=== PATIENT | male | born 1955 | race Caucasian/White ===

== ENCOUNTER 2021-06-02 08:03 | Inpatient (IN) | payer OTHER ==
[2021-06-02] MEDS ORDERED: Acetaminophen 325 MG TAB PO PRN (12:46)
[2021-06-02] MEDS ORDERED: Bisacodyl 5 MG TAB PO PRN (12:46)
[2021-06-02] MEDS ORDERED: Benzonatate 100 MG CAP PO PRN (15:19)
[2021-06-02] MEDS ORDERED: Albuterol Sulfate 2.5 mg/3 ml Neb NEB PRN (15:19)
[2021-06-02] MEDS ORDERED: Ondansetron ODT 4 MG TAB PO PRN (15:20)
[2021-06-02] MEDS ORDERED: Nicotine 21 MG PATCH TD PRN (15:20)
[2021-06-02 15:23] VITALS: BMI 28.5
[2021-06-02] MEDS ORDERED: Electrolyte Replacement Protocol 1 EACH FS SCH (15:30)
[2021-06-02] MEDS: Cefepime 2 GM in Sodium Chloride 0.9% 100 ML IVPB SCH (20:14)
[2021-06-02 20:25] LABS: Pleural Fluid, Protein 4.4 g/dL
[2021-06-02 20:31] LABS: RBC Count-Automated (BF) 9370 /cu.mm; WBC/Nucleated-Auto (BF) 3068 /cu.mm
[2021-06-02 20:43] LABS: Body Fluid Source Thoracentesis Fluid; Tube # EDTA
[2021-06-02 20:44] LABS: BF Color Yellow; Clarity Hazy (Clear)
[2021-06-02 20:48] LABS: BF Segmented Neutrophils 17 %; Cell Count Non Hematic 4 %; Eosinophils 3 %; Lymphocytes 76 %
[2021-06-02] MEDS ORDERED: Rosuvastatin 20 MG TAB PO SCH (21:00)
[2021-06-02] MEDS ORDERED: Calcium Carbonate 500 MG ChewTAB PO PRN (21:58)
[2021-06-03 06:43] LABS: #Eosinphils 0.3 thou/uL (0.0-0.7); #Lymphocytes 1.7 thou/uL (1.20-3.40); #Monocytes 0.9 thou/uL (0.11-0.59); #Neutrophils 6.8 thou/uL (1.40-6.50); %Basophils 0.4 % (0.0-1.0); %Eosinophils 2.9 % (0.0-10.0); %Lymphocytes 17.9 % (21.0-51.0); %Monocytes 8.8 % (0.0-10.0); Hemoglobin 10.2 g/dL (14.0-18.0); Mean Corpuscular HGB CONC 33.2 g/dL (32.0-36.0); Mean Corpuscular Hemoglobin 32.8 pg (27.0-31.0); Mean Corpuscular Volume 98.8 fL (78.0-98.0); Mean Platelet Volume 6.3 fL (7.4-10.4); Platelet Count 356 thou/uL (130-400); RBC Distribution Width 12.3 % (11.5-14.5); White Blood Cell (WBC) Count 9.7 thou/uL (4.8-10.8)
[2021-06-03 06:45] LABS: Hemoglobin A1c 5.3 % (4.0-6.0)
[2021-06-03 07:04] LABS: ALT (SGPT) 71 U/L (8-55); AST (SGOT) 79 U/L (5-34); Albumin 2.5 g/dL (3.4-4.8); Alkaline Phosphatase 57 U/L (40-110); Anion Gap 12 mmol/L (10-20); BUN (Urea Nitrogen) 8 mg/dL (8.4-25.7); Bilirubin, Total 0.4 mg/dL (0.2-1.2); Calc. Creatinine Clearance 140 mL/min (70-130); Carbon Dioxide 24 mmol/L (23-31); Cardiac Risk 4.1 (Less than 4.5); Chloride 98 mmol/L (98-107); Cholesterol 78 mg/dl (< 200 Desired); Globulin 3.5 g/dL (2.4-3.5); Glucose 94 mg/dL (80-115); HDL Cholesterol 19 mg/dL (>60 Neg Risk); LDL Cholesterol, Calculated 50 mg/dL; Magnesium 1.2 mg/dL (1.6-2.6); Sodium 130 mmol/L (136-145); Triglycerides 46 mg/dL (Less than 150)
[2021-06-03 07:06] VITALS: BP 126/75; TEMP 98.5
[2021-06-03] MEDS ORDERED: Magnesium Sulfate 4 GM in Sodium Chloride 0.9% 250 ML 250 ML IVPB SCH (08:15)
[2021-06-03] MEDS: Cefepime 2 GM in Sodium Chloride 0.9% 100 ML IVPB SCH (09:06)
[2021-06-03] MEDS ORDERED: Azithromycin 500 MG in Sodium Chloride 0.9% 250 ML 250 ML IVPB SCH (15:00)
[2021-06-03 17:37] LABS: SARS-CoV-2 PCR by NAA Not Detected (NotDetected)
== END 2021-06-03 12:58 | disposition home or self-care (01) | DRG 194 ==
LOC: T4-B 08:03
PROVIDERS: ADMIT Internal Medicine; ATTEND Internal Medicine
PROC: 0W993ZX Drainage of Right Pleural Cavity, Percutaneous Approach, Diagnostic (ICD-10-PCS; principal; 2021-06-02)
DX: J18.9 Pneumonia, unspecified organism (principal); J90 Pleural effusion, not elsewhere classified; Z20.822 Contact with and (suspected) exposure to COVID-19; E87.1 Hypo-osmolality and hyponatremia; E87.6 Hypokalemia; R07.9 Chest pain, unspecified; D64.9 Anemia, unspecified; I10 Essential (primary) hypertension; E78.5 Hyperlipidemia, unspecified; R91.8 Other nonspecific abnormal finding of lung field; Z87.891 Personal history of nicotine dependence; Z88.5 Allergy status to narcotic agent; Z79.899 Other long term (current) drug therapy; Z83.6 Family history of other diseases of the respiratory system; Z82.49 Family history of ischemic heart disease and other diseases of the circulatory system
CPT/HCPCS: 36415; 71260; 80053; 80061; 82150; 82945; 83036; 83615; 83735; 83986; 84157; 84443; 84478; 85025; 85060; 87070; 87116; 87205; 87206; 88112; 88305; 89051; J0692; J3475; J3490; J7050; U0003; U0005

== ENCOUNTER 2021-06-08 12:11 | Outpatient (CLI) | payer OTHER ==
[2021-06-08 23:10] LABS: SARS-CoV-2 PCR by NAA Not Detected (NotDetected)
== END 2021-06-08 12:12 | disposition home or self-care (01) ==
LOC: LABBT 12:11
PROVIDERS: ATTEND Internal Medicine
DX: Z01.812 Encounter for preprocedural laboratory examination (principal); Z20.822 Contact with and (suspected) exposure to COVID-19
CPT/HCPCS: U0003; U0005

== ENCOUNTER 2021-06-14 11:12 | Inpatient (IN) | payer OTHER ==
[2021-06-14] MEDS ORDERED: Fentanyl 100 MCG/2 ML VIAL ONE (14:02)
[2021-06-14] MEDS ORDERED: PROPOFOL 200 MG/20 ML VIAL ONE (14:16)
[2021-06-14] MEDS ORDERED: Dexamethasone 20 MG/5 ML VIAL ONE (14:16)
[2021-06-14] MEDS ORDERED: Lidocaine 1% PF 5 ML VIAL ONE (14:16)
[2021-06-14] MEDS ORDERED: Rocuronium Bromide 10 MG/ML (10ML VIAL) ONE ×2 (14:16→16:31)
[2021-06-14] MEDS ORDERED: EPINEPHrine 1 MG/10 ML Abboject SYRINGE ONE (14:16)
[2021-06-14] MEDS ORDERED: Phenylephrine 10 MG/ML VIAL ONE (14:16)
[2021-06-14] MEDS ORDERED: Ondansetron PF 4 MG/2 ML Vial ONE (14:16)
[2021-06-14] MEDS ORDERED: Albuterol Sulfate HFA (OR ONLY) ONE (14:20)
[2021-06-14] MEDS ORDERED: Lorazepam 2 MG/ML VIAL ONE (16:30)
[2021-06-14] MEDS ORDERED: Propofol 1,000 MG/100 ML VIAL IV ONE (16:30)
[2021-06-14] MEDS ORDERED: Acetaminophen 325 MG/10.15 ML UDCUP PO PRN (16:45)
[2021-06-14] MEDS ORDERED: Bisacodyl 5 MG TAB PO PRN (16:45)
[2021-06-14] MEDS ORDERED: Insulin Regular 300 UNITS/3 ML VIAL SC PRN (16:45)
[2021-06-14 17:04] LABS: Actual Bicarbonate (HCO3a) 26.3 mEq/L (22-28); Base Excess (BEa) -0.9 mEq/L (-2.0 to +3.0); CO2 Tension 55.3 mmHg (35.0-45.0); Calcium, Ionized (arterial) 1.24 mmol/L (1.12-1.30); O2 Tension (PaO2), arterial 78.9 mmHg (> 80.0); Potassium - ABG Lab 4.35 mmol/L (3.70-5.30)
[2021-06-14 17:05] LABS: ALV-art Gradient 137.175 mmHg (0-20); Puncture Site RRA
[2021-06-14] MEDS ORDERED: Labetalol HCl 100 MG/20 ML VIAL SLOW IVP PRN (17:13)
[2021-06-14] MEDS ORDERED: hydrALAZINE 20 MG/ML VIAL SLOW IVP PRN (17:14)
[2021-06-14 17:29] LABS: Hemoglobin 11.2 g/dL (14.0-18.0); Mean Corpuscular HGB CONC 33.2 g/dL (32.0-36.0); Mean Corpuscular Hemoglobin 32.9 pg (27.0-31.0); Mean Platelet Volume 5.6 fL (7.4-10.4); Platelet Count 645 thou/uL (130-400); RBC Distribution Width 12.6 % (11.5-14.5); Red Blood Cell (RBC) Count 3.41 mill/uL (4.70-6.10); White Blood Cell (WBC) Count 20.4 thou/uL (4.8-10.8)
[2021-06-14 17:48] LABS: Band 14 % (5-11); Lymphocytes 6 % (21-51); MDiff Complete? YES; Monocytes 4 % (0-10); Neutrophil 74 % (42-75); Platelet Morphology Comment Appears Increased; RBC Morphology Normal; Reactive Lymphocytes 2 % (0-10)
[2021-06-14 18:03] LABS: ALT (SGPT) 46 U/L (8-55); AST (SGOT) 23 U/L (5-34); Albumin 3.1 g/dL (3.4-4.8); Alkaline Phosphatase 74 U/L (40-110); Anion Gap 12 mmol/L (10-20); BUN (Urea Nitrogen) 7 mg/dL (8.4-25.7); Bilirubin, Total 0.4 mg/dL (0.2-1.2); Calc. Creatinine Clearance 116 mL/min (70-130); Calcium 9.3 mg/dL (7.8-10.44); Carbon Dioxide 25 mmol/L (23-31); Chloride 104 mmol/L (98-107); Globulin 4.1 g/dL (2.4-3.5); Glucose 189 mg/dL (80-115); Potassium 4.3 mmol/L (3.5-5.1); Protein, Total 7.2 g/dL (5.8-8.1); Sodium 137 mmol/L (136-145)
[2021-06-14] MEDS ORDERED: DISCONTINUE PREVIOUS NARCOTIC PAIN MEDICATIONS AND BENZODIAZEPINES FS SCH (18:15)
[2021-06-14] MEDS ORDERED: Fentanyl CADD 100 ML IV SCH (18:15)
[2021-06-14] MEDS ORDERED: Propofol BOLUS 1,000 MG/100 ML VIAL IV PRN (18:15)
[2021-06-14] MEDS ORDERED: FLU VACC QS2021-22(6MOS UP)/PF 60 MCG/0.5 ML SYRINGE IM ONE (18:15)
[2021-06-14] MEDS ORDERED: Rocuronium Bromide 10 MG/ML (10ML VIAL) IVP SCH (18:15)
[2021-06-14] MEDS ORDERED: Fentanyl BOLUS 250 ML IVPB PRN (18:15)
[2021-06-14] MEDS ORDERED: Morphine 2 MG/ML VIAL SLOW IVP PRN ×2 (18:15→18:18)
[2021-06-14] MEDS ORDERED: Morphine 4 MG/ML VIAL SLOW IVP PRN (18:30)
[2021-06-14] MEDS: Rocuronium Bromide 10 MG/ML (10ML VIAL) IVP PRN ×3 (19:10→23:04)
[2021-06-14] MEDS: Sodium Chloride 0.9% 1,000 ML IV SCH (20:14)
[2021-06-14] MEDS: Famotidine 40 MG/5 ML Oral Suspension PER TUBE SCH (20:14)
[2021-06-14] MEDS ORDERED: Sodium Chloride 0.9% 1,000 ML IV SCH (20:15)
[2021-06-14 21:16] LABS: Hemoglobin 9.3 g/dL (14.0-18.0)
[2021-06-14] MEDS: Propofol 1,000 MG/100 ML VIAL IV PRN (21:26)
[2021-06-15] MEDS: Rocuronium Bromide 10 MG/ML (10ML VIAL) IVP PRN ×4 (01:00→07:04)
[2021-06-15 04:09] LABS: ALT (SGPT) 34 U/L (8-55); AST (SGOT) 15 U/L (5-34); Albumin 2.5 g/dL (3.4-4.8); Alkaline Phosphatase 56 U/L (40-110); Anion Gap 15 mmol/L (10-20); BUN (Urea Nitrogen) 11 mg/dL (8.4-25.7); Bilirubin, Total 0.3 mg/dL (0.2-1.2); Calc. Creatinine Clearance 108 mL/min (70-130); Calcium 8.5 mg/dL (7.8-10.44); Carbon Dioxide 20 mmol/L (23-31); Chloride 106 mmol/L (98-107); Globulin 3.4 g/dL (2.4-3.5); Glucose 143 mg/dL (80-115); Potassium 4.4 mmol/L (3.5-5.1); Protein, Total 5.9 g/dL (5.8-8.1); Sodium 137 mmol/L (136-145)
[2021-06-15 04:27] LABS: Band 6 % (5-11); Hemoglobin 8.9 g/dL (14.0-18.0); Lymphocytes 9 % (21-51); MDiff Complete? YES; Mean Corpuscular HGB CONC 33.3 g/dL (32.0-36.0); Mean Corpuscular Hemoglobin 32.7 pg (27.0-31.0); Mean Corpuscular Volume 98.1 fL (78.0-98.0); Mean Platelet Volume 5.2 fL (7.4-10.4); Monocytes 5 % (0-10); Neutrophil 80 % (42-75); Platelet Count 461 thou/uL (130-400); Platelet Morphology Comment Appears Increased; RBC Distribution Width 12.4 % (11.5-14.5); RBC Morphology Normal; Red Blood Cell (RBC) Count 2.72 mill/uL (4.70-6.10); White Blood Cell (WBC) Count 9.8 thou/uL (4.8-10.8)
[2021-06-15] MEDS: Sodium Chloride 0.9% 1,000 ML IV SCH ×3 (05:10→21:11)
[2021-06-15] MEDS: Propofol 1,000 MG/100 ML VIAL IV PRN (05:10)
[2021-06-15] MEDS: Lorazepam 2 MG/ML VIAL SLOW IVP PRN ×2 (05:10→07:43)
[2021-06-15 07:59] LABS: Actual Bicarbonate (HCO3a) 21.6 mEq/L (22-28); Base Excess (BEa) -3.1 mEq/L (-2.0 to +3.0); CO2 Tension 37.3 mmHg (35.0-45.0); Calcium, Ionized (arterial) 1.16 mmol/L (1.12-1.30); Carboxyhemoglobin (COHb) 0.1 gm% (0.0-3.0); Hemoglobin (Hb) 11.3 g/dL (14.0-18.0); O2 Tension (PaO2), arterial 85.3 mmHg (> 80.0); Potassium - ABG Lab 4.12 mmol/L (3.70-5.30); pH, Arterial 7.38 (7.35-7.45)
[2021-06-15 08:11] LABS: ALV-art Gradient 153.275 mmHg (0-20); Puncture Site RRA
[2021-06-15] MEDS ORDERED: Sodium Chloride 0.9% 1,000 ML IV SCH (08:15)
[2021-06-15] MEDS: Famotidine 40 MG/5 ML Oral Suspension PER TUBE SCH (08:25)
[2021-06-15] MEDS ORDERED: Famotidine/PF 20 mg/2ml Vial SLOW IVP SCH (21:00)
[2021-06-16 04:52] LABS: Band 2 % (5-11); Hemoglobin 6.9 g/dL (14.0-18.0); Lymphocytes 21 % (21-51); MDiff Complete? YES; Mean Corpuscular HGB CONC 33.4 g/dL (32.0-36.0); Mean Corpuscular Hemoglobin 33.2 pg (27.0-31.0); Mean Corpuscular Volume 99.2 fL (78.0-98.0); Mean Platelet Volume 5.3 fL (7.4-10.4); Monocytes 3 % (0-10); Neutrophil 74 % (42-75); Platelet Count 451 thou/uL (130-400); Platelet Morphology Comment Appears Increased; RBC Distribution Width 12.6 % (11.5-14.5); RBC Morphology Normal; Red Blood Cell (RBC) Count 2.06 mill/uL (4.70-6.10); White Blood Cell (WBC) Count 12.4 thou/uL (4.8-10.8)
[2021-06-16 05:08] LABS: ALT (SGPT) 29 U/L (8-55); AST (SGOT) 20 U/L (5-34); Albumin 2.5 g/dL (3.4-4.8); Alkaline Phosphatase 55 U/L (40-110); Anion Gap 9 mmol/L (10-20); BUN (Urea Nitrogen) 9 mg/dL (8.4-25.7); Bilirubin, Total 0.3 mg/dL (0.2-1.2); Calc. Creatinine Clearance 143 mL/min (70-130); Calcium 8.4 mg/dL (7.8-10.44); Carbon Dioxide 24 mmol/L (23-31); Chloride 109 mmol/L (98-107); Globulin 3.2 g/dL (2.4-3.5); Glucose 97 mg/dL (80-115); Potassium 3.6 mmol/L (3.5-5.1); Protein, Total 5.7 g/dL (5.8-8.1); Sodium 138 mmol/L (136-145)
[2021-06-16] MEDS: Sodium Chloride 0.9% 1,000 ML IV SCH (06:20)
[2021-06-16] MEDS: Famotidine 40 MG/5 ML Oral Suspension PER TUBE SCH (07:42)
[2021-06-16] MEDS: Famotidine 20 MG TAB PO SCH ×2 (10:04→21:11)
[2021-06-17 07:05] LABS: Anion Gap 9 mmol/L (10-20); Carbon Dioxide 28 mmol/L (23-31); Chloride 105 mmol/L (98-107); Potassium 3.8 mmol/L (3.5-5.1); Sodium 138 mmol/L (136-145)
[2021-06-17 07:06] LABS: ALT (SGPT) 29 U/L (8-55); AST (SGOT) 22 U/L (5-34); Albumin 2.7 g/dL (3.4-4.8); Alkaline Phosphatase 60 U/L (40-110); BUN (Urea Nitrogen) 8 mg/dL (8.4-25.7); Bilirubin, Total 0.9 mg/dL (0.2-1.2); Calc. Creatinine Clearance 142 mL/min (70-130); Globulin 3.5 g/dL (2.4-3.5); Glucose 95 mg/dL (80-115); Protein, Total 6.2 g/dL (5.8-8.1)
[2021-06-17 07:10] LABS: Mean Corpuscular Hemoglobin 31.8 pg (27.0-31.0); Mean Corpuscular Volume 96.4 fL (78.0-98.0); Mean Platelet Volume 5.4 fL (7.4-10.4); Platelet Count 429 thou/uL (130-400); RBC Distribution Width 13.3 % (11.5-14.5); Red Blood Cell (RBC) Count 3.46 mill/uL (4.70-6.10)
[2021-06-17] MEDS: Famotidine 20 MG TAB PO SCH ×2 (08:35→20:07)
[2021-06-17 09:09] LABS: Band 2 % (5-11); Eosinophils 1 % (0-10); Lymphocytes 23 % (21-51); MDiff Complete? YES; Monocytes 7 % (0-10); Neutrophil 67 % (42-75); Platelet Morphology Comment Appears Increased; RBC Morphology Normal
[2021-06-17 11:38] VITALS: BMI 28.8
[2021-06-18] MEDS: Famotidine 20 MG TAB PO SCH ×2 (08:22→19:10)
[2021-06-19] MEDS: Famotidine 20 MG TAB PO SCH ×2 (08:08→21:14)
[2021-06-20] MEDS: Famotidine 20 MG TAB PO SCH ×2 (08:32→20:57)
[2021-06-20] MEDS ORDERED: Midazolam HCl 2 mg/2 ml Vial ONE ×2 (09:26→10:20)
[2021-06-20] MEDS ORDERED: Fentanyl 250 MCG/5 ML VIAL ONE (09:26)
[2021-06-20] MEDS ORDERED: Fentanyl 100 MCG/2 ML VIAL ONE ×2 (10:20→13:31)
[2021-06-20] MEDS ORDERED: Bupivacaine PF 0.5% 30 ML VIAL ONE (10:41)
[2021-06-20] MEDS ORDERED: Lidocaine 1% w/Epinephrine 1:100K 30 ML VIAL ONE (10:41)
[2021-06-20] MEDS ORDERED: Ondansetron PF 4 MG/2 ML Vial ONE (11:09)
[2021-06-20] MEDS ORDERED: Dexamethasone 20 MG/5 ML VIAL ONE (11:09)
[2021-06-20] MEDS ORDERED: Phenylephrine 10 MG/ML VIAL ONE (11:09)
[2021-06-20] MEDS ORDERED: Rocuronium Bromide 10 MG/ML (10ML VIAL) ONE (11:09)
[2021-06-20] MEDS ORDERED: Glycopyrrolate 0.2 MG/ML 5 ML SYRINGE ONE (11:09)
[2021-06-20] MEDS ORDERED: Lidocaine 1.5% w/Epi 1:200K 30 ML VIAL (Epid Use) ONE (11:09)
[2021-06-20] MEDS ORDERED: Esmolol 100 MG/10 ML VIAL ONE (11:09)
[2021-06-20] MEDS ORDERED: Calcium Chloride 1 GM/10 ML Abboject SYRINGE ONE (11:09)
[2021-06-20] MEDS ORDERED: PROPOFOL 200 MG/20 ML VIAL ONE (11:09)
[2021-06-20] MEDS ORDERED: Labetalol HCl 100 MG/20 ML VIAL ONE (11:09)
[2021-06-20] MEDS ORDERED: Acetaminophen 500 MG TAB PO PRN (11:18)
[2021-06-20] MEDS ORDERED: Naloxone HCl 0.4 mg/ml Vial IV PRN (11:30)
[2021-06-20] MEDS ORDERED: diphenhydrAMINE 50 MG/ML VIAL IM PRN (11:30)
[2021-06-20] MEDS ORDERED: Bupivacaine 0.25% 10 ML VIAL EPIDURAL PRN (11:30)
[2021-06-20] MEDS ORDERED: diphenhydrAMINE 25 MG CAP PO PRN (11:30)
[2021-06-20] MEDS ORDERED: Ondansetron PF 4 MG/2 ML Vial IVP PRN ×2 (11:30→13:44)
[2021-06-20] MEDS ORDERED: diphenhydrAMINE 50 MG/ML VIAL IVP PRN (11:30)
[2021-06-20] MEDS ORDERED: Hydrocerin (Eucerin) Cream 120 gm Jar TOP PRN (11:30)
[2021-06-20] MEDS ORDERED: Promethazine HCl 25 MG SUPP PR PRN (11:30)
[2021-06-20] MEDS ORDERED: Naloxone HCl 0.4 mg/ml Vial IVP PRN (11:30)
[2021-06-20] MEDS ORDERED: Promethazine HCl 25 MG/ML VIAL IM PRN (11:30)
[2021-06-20] MEDS ORDERED: traMADol HCl 50 MG TAB PO PRN ×2 (11:30)
[2021-06-20] MEDS ORDERED: HYDROcodone/Acetaminophen 5/325 mg Tablet PO PRN ×2 (11:30)
[2021-06-20] MEDS ORDERED: Zolpidem Tartrate 5 MG TAB PO PRN (11:30)
[2021-06-20] MEDS ORDERED: Amiodarone 450 MG, Admixture Fee 1 EACH in Dextrose 5% in Water 250 ML IVPB SCH (11:45)
[2021-06-20] MEDS ORDERED: Amiodarone 150 MG, Admixture Fee 1 EACH in Dextrose 5% in Water 100 ML IVPB SCH (11:45)
[2021-06-20] MEDS ORDERED: Bupivacaine 0.25% HCL 30 ML VIAL ONE (13:31)
[2021-06-20] MEDS ORDERED: Nitroglycerin 50 MG/250 ML BOT 250 ML IVPB PRN (13:44)
[2021-06-20] MEDS ORDERED: Phenylephrine 40 MG in Sodium Chloride 0.9% 250 ML 250 ML IVPB PRN (13:44)
[2021-06-20] MEDS: Ketorolac Tromethamine 30 MG/ML VIAL IVP SCH ×2 (15:05→18:00)
[2021-06-20] MEDS: CEFAZOLIN 2 GM in Premix Bag 1 BAG IVPB SCH (20:57)
[2021-06-21] MEDS: Ketorolac Tromethamine 30 MG/ML VIAL IVP SCH ×4 (00:02→17:56)
[2021-06-21] MEDS: CEFAZOLIN 2 GM in Premix Bag 1 BAG IVPB SCH ×2 (03:50→13:38)
[2021-06-21 04:38] LABS: #Lymphocytes 1.8 thou/uL (1.20-3.40); #Monocytes 1.6 thou/uL (0.11-0.59); #Neutrophils 11.1 thou/uL (1.40-6.50); %Basophils 0.1 % (0.0-1.0); %Eosinophils 0.1 % (0.0-10.0); %Lymphocytes 12.3 % (21.0-51.0); %Monocytes 10.7 % (0.0-10.0); %Neutrophils 76.8 % (42.0-75.0); Hemoglobin 11.6 g/dL (14.0-18.0); Mean Corpuscular Hemoglobin 30.3 pg (27.0-31.0); Mean Corpuscular Volume 97.7 fL (78.0-98.0); Mean Platelet Volume 5.7 fL (7.4-10.4); Platelet Count 416 thou/uL (130-400); RBC Distribution Width 13.2 % (11.5-14.5); Red Blood Cell (RBC) Count 3.84 mill/uL (4.70-6.10); White Blood Cell (WBC) Count 14.5 thou/uL (4.8-10.8)
[2021-06-21 04:46] LABS: Anion Gap 11 mmol/L (10-20); BUN (Urea Nitrogen) 15 mg/dL (8.4-25.7); Calc. Creatinine Clearance 105 mL/min (70-130); Calcium 9.7 mg/dL (7.8-10.44); Carbon Dioxide 29 mmol/L (23-31); Chloride 99 mmol/L (98-107); Glucose 126 mg/dL (80-115); Potassium 4.5 mmol/L (3.5-5.1); Sodium 134 mmol/L (136-145)
[2021-06-21] MEDS: fentaNYL Citrate/PF 500 MCG, Bupivacaine 10 ML in Sodium Chloride 0.9% 80 ML EPIDURAL SCH (06:45)
[2021-06-21] MEDS: Famotidine 20 MG TAB PO SCH ×2 (09:56→21:58)
[2021-06-22] MEDS: Ketorolac Tromethamine 30 MG/ML VIAL IVP SCH ×2 (00:59→05:39)
[2021-06-22] MEDS: fentaNYL Citrate/PF 500 MCG, Bupivacaine 10 ML in Sodium Chloride 0.9% 80 ML EPIDURAL SCH ×2 (01:44→17:51)
[2021-06-22] MEDS: Famotidine 20 MG TAB PO SCH ×2 (08:46→20:55)
[2021-06-22 15:30] LABS: SARS-CoV-2 PCR by NAA Not Detected (NotDetected)
[2021-06-23] MEDS: Famotidine 20 MG TAB PO SCH (08:42)
[2021-06-23 11:48] VITALS: BP 118/67; TEMP 98.3
== END 2021-06-23 13:10 | disposition home or self-care (01) | DRG 163 ==
LOC: SDC 11:12 → CCU 16:25 → T4-B 06-16 16:44 → CCU 06-20 09:47 → 2NO 06-21 08:51
PROVIDERS: ADMIT Internal Medicine; ATTEND Internal Medicine
PROC: 0B9F8ZX Drainage of Right Lower Lung Lobe, Via Natural or Artificial Opening Endoscopic, Diagnostic (ICD-10-PCS; 2021-06-14)
PROC: 07D78ZX Extraction of Thorax Lymphatic, Via Natural or Artificial Opening Endoscopic, Diagnostic (ICD-10-PCS; 2021-06-14)
PROC: 0B9F8ZX Drainage of Right Lower Lung Lobe, Via Natural or Artificial Opening Endoscopic, Diagnostic (ICD-10-PCS; principal; 2021-06-15)
PROC: 0B9D8ZX Drainage of Right Middle Lung Lobe, Via Natural or Artificial Opening Endoscopic, Diagnostic (ICD-10-PCS; 2021-06-15)
PROC: 0B938ZX Drainage of Right Main Bronchus, Via Natural or Artificial Opening Endoscopic, Diagnostic (ICD-10-PCS; 2021-06-15)
PROC: 0BNC0ZZ Release Right Upper Lung Lobe, Open Approach (ICD-10-PCS; 2021-06-20)
PROC: 07B70ZX Excision of Thorax Lymphatic, Open Approach, Diagnostic (ICD-10-PCS; 2021-06-20)
DX: R91.8 Other nonspecific abnormal finding of lung field (principal); J96.01 Acute respiratory failure with hypoxia; Z20.822 Contact with and (suspected) exposure to COVID-19; J96.02 Acute respiratory failure with hypercapnia; D62 Acute posthemorrhagic anemia; J95.831 Postprocedural hemorrhage of a respiratory system organ or structure following other procedure; J98.11 Atelectasis; J90 Pleural effusion, not elsewhere classified; Y83.8 Other surgical procedures as the cause of abnormal reaction of the patient, or of later complication, without mention of misadventure at the time of the procedure; F17.210 Nicotine dependence, cigarettes, uncomplicated; I10 Essential (primary) hypertension; E78.5 Hyperlipidemia, unspecified; R59.1 Generalized enlarged lymph nodes; Z80.49 Family history of malignant neoplasm of other genital organs; Z87.891 Personal history of nicotine dependence
CPT/HCPCS: 36415; 36430; 36600; 71045; 80048; 80053; 82805; 85007; 85025; 85027; 86850; 86900; 86901; 87070; 87205; 88112; 88172; 88173; 88184; 88305; 88331; 88332; 88334; 88341; 88342; 94002; 94003; 94640; C1776; J0171; J0690; J1100; J1642; J1885; J1956; J2001; J2060; J2250; J2370; J2405; J2704; J3010; J3490; J7050; J7620; P9016; S0020; S0028; U0003; U0005

== ENCOUNTER 2021-07-06 13:28 | Outpatient (CLI) | payer OTHER | END 2021-07-06 13:29 | disposition home or self-care (01) | LOC: BICRAD 13:28 | PROVIDERS: ATTEND Thoracic Surgery (Cardiothoracic Vascular Surgery) | DX: J86.9 Pyothorax without fistula (principal); R91.8 Other nonspecific abnormal finding of lung field; J90 Pleural effusion, not elsewhere classified | CPT/HCPCS: 71046 ==

== ENCOUNTER 2022-01-09 02:08 | Observation (INO) | payer OTHER, SELFPAY ==
[2022-01-09 03:44] VITALS: BMI 29.0
[2022-01-09] MEDS ORDERED: Ondansetron PF 4 MG/2 ML Vial IVP PRN (05:45)
[2022-01-09] MEDS ORDERED: Acetaminophen 325 MG TAB PO PRN (05:45)
[2022-01-09 06:57] LABS: #Eosinphils 0.2 thou/uL (0.0-0.7); #Lymphocytes 2.5 thou/uL (1.20-3.40); #Neutrophils 7.4 thou/uL (1.40-6.50); %Basophils 0.3 % (0.0-1.0); %Eosinophils 1.4 % (0.0-10.0); %Lymphocytes 22.5 % (21.0-51.0); %Monocytes 8.6 % (0.0-10.0); %Neutrophils 67.2 % (42.0-75.0); Mean Corpuscular HGB CONC 32.7 g/dL (32.0-36.0); Mean Corpuscular Hemoglobin 33.4 pg (27.0-31.0); Platelet Count 318 thou/uL (130-400); RBC Distribution Width 12.9 % (11.5-14.5); Red Blood Cell (RBC) Count 3.89 mill/uL (4.70-6.10)
[2022-01-09 07:01] LABS: Anion Gap 12 mmol/L (10-20); BUN (Urea Nitrogen) 20 mg/dL (8.4-25.7); Calc. Creatinine Clearance 104 mL/min (70-130); Calcium 9.6 mg/dL (7.8-10.44); Carbon Dioxide 28 mmol/L (23-31); Chloride 104 mmol/L (98-107); Estimated GFR 92; Glucose 104 mg/dL (80-115); Potassium 4.6 mmol/L (3.5-5.1); Sodium 139 mmol/L (136-145)
[2022-01-09] MEDS: Enoxaparin Sodium 40 MG/0.4 ML SYRINGE SC SCH (10:03)
[2022-01-09] MEDS ORDERED: Flecainide 50 MG TAB PO SCH (18:00)
[2022-01-09] MEDS: Mometasone 200 MCG/Formoterol 5 MCG 120 PUFF INHALER INH SCH (18:50)
[2022-01-10 04:47] LABS: #Basophils 0.1 thou/uL (0.0-0.2); #Eosinphils 0.3 thou/uL (0.0-0.7); #Lymphocytes 2.6 thou/uL (1.20-3.40); #Neutrophils 8.1 thou/uL (1.40-6.50); %Basophils 0.4 % (0.0-1.0); %Eosinophils 2.3 % (0.0-10.0); %Lymphocytes 21.6 % (21.0-51.0); %Monocytes 7.9 % (0.0-10.0); %Neutrophils 67.8 % (42.0-75.0); Hemoglobin 12.9 g/dL (14.0-18.0); Mean Corpuscular Hemoglobin 33.2 pg (27.0-31.0); Mean Platelet Volume 5.8 fL (7.4-10.4); Platelet Count 302 thou/uL (130-400); RBC Distribution Width 12.7 % (11.5-14.5); Red Blood Cell (RBC) Count 3.88 mill/uL (4.70-6.10)
[2022-01-10 05:05] LABS: Anion Gap 14 mmol/L (10-20); BUN (Urea Nitrogen) 21 mg/dL (8.4-25.7); Calc. Creatinine Clearance 117 mL/min (70-130); Calcium 9.6 mg/dL (7.8-10.44); Carbon Dioxide 23 mmol/L (23-31); Chloride 105 mmol/L (98-107); Estimated GFR 97; Glucose 102 mg/dL (80-115); Potassium 4.3 mmol/L (3.5-5.1); Sodium 138 mmol/L (136-145)
[2022-01-10] MEDS: Mometasone 200 MCG/Formoterol 5 MCG 120 PUFF INHALER INH SCH (07:12)
[2022-01-10] MEDS ORDERED: Folic Acid 1 MG TAB PO SCH (09:00)
[2022-01-10] MEDS: Enoxaparin Sodium 40 MG/0.4 ML SYRINGE SC SCH (09:20)
[2022-01-10 11:42] VITALS: TEMP 98.6
[2022-01-10 12:24] VITALS: BP 121/79
== END 2022-01-10 13:56 | disposition home or self-care (01) ==
LOC: 2SW 02:17
PROVIDERS: ADMIT Internal Medicine; ATTEND Internal Medicine
DX: I47.1 Supraventricular tachycardia (principal); I49.3 Ventricular premature depolarization; I95.1 Orthostatic hypotension; R91.8 Other nonspecific abnormal finding of lung field; D72.829 Elevated white blood cell count, unspecified; I10 Essential (primary) hypertension; E78.5 Hyperlipidemia, unspecified; D75.89 Other specified diseases of blood and blood-forming organs; J90 Pleural effusion, not elsewhere classified; I08.1 Rheumatic disorders of both mitral and tricuspid valves; Z87.891 Personal history of nicotine dependence; Z79.899 Other long term (current) drug therapy; Z88.5 Allergy status to narcotic agent; Z20.822 Contact with and (suspected) exposure to COVID-19
CPT/HCPCS: 36415; 80048; 84443; 85025; 93005; 93010; 93306; 94664; 96372; G0378; J1650; U0003; U0005

== ENCOUNTER 2022-08-30 08:25 | Outpatient (CLI) | payer MEDICARE | END 2022-08-30 08:26 | disposition home or self-care (01) | LOC: RAD 08:25 | PROVIDERS: ATTEND Internal Medicine Critical Care Medicine | DX: R06.00 Dyspnea, unspecified (principal); R91.8 Other nonspecific abnormal finding of lung field | CPT/HCPCS: 71046 ==

== ENCOUNTER 2023-04-20 08:45 | Outpatient (CLI) | payer MEDICARE | END 2023-04-20 08:46 | disposition home or self-care (01) | LOC: PET 08:45 | PROVIDERS: ATTEND Internal Medicine Hematology & Oncology | DX: C34.01 Malignant neoplasm of right main bronchus (principal); J95.89 Other postprocedural complications and disorders of respiratory system, not elsewhere classified; J98.11 Atelectasis; R91.8 Other nonspecific abnormal finding of lung field; J90 Pleural effusion, not elsewhere classified; C77.1 Secondary and unspecified malignant neoplasm of intrathoracic lymph nodes | CPT/HCPCS: 78815; A9552 ==